=== PATIENT | male | born 1975 | race Hispanic/Latino ===

== ENCOUNTER 2024-02-08 16:27 | Observation (INO) | payer OTHER ==
--- OUTSIDE RECORDS SUMMARY | 2024-02-08 16:30 | XMS REPORT | Continuity of Care Document ---
Author Name Unknown Address [address] [facility] [place] [address] [facility] thconnect Address [address] [place] [address] Care Team Providers Care Aircraft Ordnance Technician Name Role Phone Kurtis Attending Clinician Unavailable JAHAIRA JUARES Attending Clinician Unavailable AMY HINSON Attending Clinician Unava ilable Olinda Attending Clinician Unavailable LEONEL ÁLVAREZ Attending Clinician Unavail able YVES IVAN Attending Clinician Unavailable [id number] Attending Clinician Unavailable Provider, [facility] Attending Clinician Un available Denisse Shukla Attending Clinician DENISSE BARRY Attending Clinician Unavailable Doctor Unassigned, [place] Attending Clinician U marcella Hull Admitting Clinician Unavailable Olinda Admitting Clinician Unavailable Payers Payer Name Policy Type Policy Number Effective Date Expirati on Date Source [employer]ET[employer] CHOICE POS II [id number] 2022 00:00:00 AETNA - CHOICE (POS II) [id number] 2008 00:00:00 [employer]ET[employer] 2 [id number] 2022 00:00:00 Problems Condition Name Condition Details Condition Category Status Onset Date Resolution Date Last Treatment Date Treating Clinician Comments Source No known active problems No known active problems Disease [facility] Allergies, Adverse Reactions, Alerts Allergy Name Allergy Type Status Severity Reaction(s) Onset Date Inactive Date Treating Clinician Comments Source Doxylami ne-Pheny lephrine Propensi ty to adverse reaction s Active Unknown - See comments 2019-12 00:00: 00 Other reaction( s): rapid heart rate [facility] DOXYLAMI NE-PHENY LEPHRINE DRUG Active Unknown-Cmnt 2019-12 00:00: 00 [facility] NO KNOWN ALLERGIE S Drug Class Active [facility] Social History Social Habit Start Date Stop Date Quantity Comments Source Exposure to SARS-CoV-2 (event) Not sure [facility] Alcohol intake 2022-09-17 00:00:00 2022-09-17 00:00:00 Ex-drinker (finding) Gricelda Ferrari - Zehra Tobacco use and exposure 2022-09-17 00:00:00 2022-09-17 00:00:00 Smokeless tobacco non-user Gricelda Ferrari - External Sex Assigned At 1975 00:00:00 1975 00:00:00 Gricelda Ferrari - External Smoking Status Start Date Stop Date Source Former Smoker [facility] Unknown if ever smoked [facility] Never smoked tobacco Gricelda Ferrari - External Medications Ordered Medication Name Filled Medication Name Start Date Stop Date Current Medication? Ordering Clinician Indication Dosage Frequency Signature (SIG) Comments Components Source Methotrexat e 2.5 MG oral Tablet 2021-12 0 00:00: 00 Yes [id number] 10mg Take 4 tablets (10 mg total) by mouth once a week Gricelda santiago Cholecalcif rebeca 1.25 MG (68262 UT) oral Capsule 2021-12 00:00: 00 10-16 05:59 :00 No [id number] Take 1 capsule (50,000 units total) by mouth twice a week for 8 doses Gricelda santiago Losartan Potassium 50 MG oral Tablet 2021-12 09:02: 40 Yes 50mg Take 50 mg by mouth Gricelda santiago Amlodipine Besylate 10 MG oral Tablet 2021-12 09:02: 40 Yes 1{each} 1 each daily Gricelda santiago [place]-3 Fatty Acids (Fish Oil) 1000 MG oral Capsule 2021-12 09:02: 40 Yes 1000mg Take 1,000 mg by mouth 3 times daily Gricelda santiago methylPREDN ISolone (Medrol) 4 MG oral Tablet Therapy Pack 2021-12 00:00: 00 Yes [id number] 1{danial} Take 1 danial by mouth See Admin Instructio ns Use as directed. Gricelda Asifalverto Tasneem Axela jack Metformin HCl 1000 MG oral Tablet 08-20 00:00: 00 Yes 1000mg Take 1,000 mg by mouth 2 times daily Gricelda Vonda santiago Dulaglutide (Trulicity) 1.5 MG/0.5ML subcutaneou s Solution Pen-injecto r 2020-12 00:00: 00 Yes 1mL 1 mL Gricelda Asifyueciro Boateng Axela jack dulaglutide (TRULICITY) 1.5 mg/0.5 mL PnIj 05-22 18:02: 12 Yes inject under the skin. [facility] losartan 50 mg tablet 05-22 18:02: 12 Yes 50mg Take 50 mg by mouth. [facility] metformin ER 750 mg 24 hr tablet 03-19 00:00: 00 Yes TAKE 1 TABLET BY MOUTH EVERY DAY WITH BREAKFAST [facility] atorvastati n 40 mg tablet 03-09 00:00: 00 Yes 20mg Take 20 mg by mouth. [facility] amLODIPine 5 mg tablet 2019-12 00:00: 00 Yes 5mg Take 5 mg by mouth. [facility] Insulin Detemir (LEVEMIR FLEXTOUCH U-100 INSULN) 100 unit/mL (3 mL) injection 2019-12 00:00: 00 Yes 60U inject 60 Units under the skin. [facility] Metformin HCl 1000 MG oral Tablet 2017-12 00:00: 00 Yes metformin 1,000 mg tablet TAKE 1 TABLET BY MOUTH TWICE A DAY Gricelda Vonda santiago diflupredna te 0.05 % eye drops PLACE 1 DROP IN RIGHT EYE EVERY 2 HOURS FOR 3 DAYS THEN USE 1 DROP FOUR TIMES DAILY diflupredna te 0.05 % eye drops PLACE 1 DROP IN RIGHT EYE EVERY 2 HOURS FOR 3 DAYS THEN USE 1 DROP FOUR TIMES DAILY No diflupredn ate 0.05 % eye drops PLACE 1 DROP IN RIGHT EYE EVERY 2 HOURS FOR 3 DAYS THEN USE 1 DROP FOUR TIMES DAILY [facility] escitalopra m 10 mg tablet Take 1 tablet by mouth daily. escitalopra m 10 mg tablet Take 1 tablet by mouth daily. No escitalopr am 10 mg tablet Take 1 tablet by mouth daily. [facility] gabapentin 300 mg capsule TAKE 1 CAPSULE BY MOUTH AT BEDTIME gabapentin 300 mg capsule TAKE 1 CAPSULE BY MOUTH AT BEDTIME No gabapentin 300 mg capsule TAKE 1 CAPSULE BY MOUTH AT BEDTIME [facility] losartan 100 mg tablet TAKE 1 TABLET BY MOUTH EVERY DAY losartan 100 mg tablet TAKE 1 TABLET BY MOUTH EVERY DAY No losartan 100 mg tablet TAKE 1 TABLET BY MOUTH EVERY DAY [facility] metformin 1,000 mg tablet TAKE 1 TABLET BY MOUTH TWICE A DAY metformin 1,000 mg tablet TAKE 1 TABLET BY MOUTH TWICE A DAY No metformin 1,000 mg tablet TAKE 1 TABLET BY MOUTH TWICE A DAY [facility] metoprolol succinate ER 50 mg tablet,exte nded release 24 hr Take 1 tablet every day by oral route. metoprolol succinate ER 50 mg tablet,exte nded release 24 hr Take 1 tablet every day by oral route. No 1 Q1D metoprolol succinate ER 50 mg tablet,ext ended release 24 hr Take 1 tablet every day by oral route. [facility] rosuvastati n 10 mg tablet TAKE 1 TABLET BY MOUTH EVERY DAY (PLEASE SCHEDULE APPOINTMENT ) rosuvastati n 10 mg tablet TAKE 1 TABLET BY MOUTH EVERY DAY (PLEASE SCHEDULE APPOINTMENT ) No rosuvastat in 10 mg tablet TAKE 1 TABLET BY MOUTH EVERY DAY (PLEASE SCHEDULE APPOINTMEN T) [facility] Trulicity 0.75 mg/0.5 mL subcutaneou s pen injector INJECT 1 ML SUBCUTANEOU SLY EVERY WEEK Trulicity 0.75 mg/0.5 mL subcutaneou s pen injector INJECT 1 ML SUBCUTANEOU SLY EVERY WEEK No Trulicity 0.75 mg/0.5 mL subcutaneo us pen injector INJECT 1 ML SUBCUTANEO USLY EVERY WEEK [facility] Trulicity 1.5 mg/0.5 mL subcutaneou s pen injector Inject 1.5 mg every week by subcutaneou s route. Trulicity 1.5 mg/0.5 mL subcutaneou s pen injector Inject 1.5 mg every week by subcutaneou s route. No 1.5mg Q1W Trulicity 1.5 mg/0.5 mL subcutaneo us pen injector Inject 1.5 mg every week by subcutaneo us route. [facility] Vascepa 1 gram capsule TAKE 2 CAPSULES BY MOUTH TWICE A DAY Vascepa 1 gram capsule TAKE 2 CAPSULES BY MOUTH TWICE A DAY No Vascepa 1 gram capsule TAKE 2 CAPSULES BY MOUTH TWICE A DAY [facility] amlodipine 10 mg tablet TAKE 1 TABLET BY MOUTH EVERY DAY amlodipine 10 mg tablet TAKE 1 TABLET BY MOUTH EVERY DAY No amlodipine 10 mg tablet TAKE 1 TABLET BY MOUTH EVERY DAY [facility] buspirone 7.5 mg tablet Take 1 tablet by mouth twice daily. buspirone 7.5 mg tablet Take 1 tablet by mouth twice daily. No buspirone 7.5 mg tablet Take 1 tablet by mouth twice daily. [facility] cholecalcif rebeca (vitamin D3) 1,250 mcg (50,000 unit) capsule TAKE 1 CAPSULE (50,000 UNITS TOTAL) BY MOUTH TWICE A WEEK FOR 8 DOSES cholecalcif rebeca (vitamin D3) 1,250 mcg (50,000 unit) capsule TAKE 1 CAPSULE (50,000 UNITS TOTAL) BY MOUTH TWICE A WEEK FOR 8 DOSES No cholecalci ferol (vitamin D3) 1,250 mcg (50,000 unit) capsule TAKE 1 CAPSULE (50,000 UNITS TOTAL) BY MOUTH TWICE A WEEK FOR 8 DOSES [facility] diflupredna te 0.05 % eye drops PLACE 1 DROP IN RIGHT EYE EVERY 2 HOURS FOR 3 DAYS THEN USE 1 DROP FOUR TIMES DAILY diflupredna te 0.05 % eye drops PLACE 1 DROP IN RIGHT EYE EVERY 2 HOURS FOR 3 DAYS THEN USE 1 DROP FOUR TIMES DAILY No diflupredn ate 0.05 % eye drops PLACE 1 DROP IN RIGHT EYE EVERY 2 HOURS FOR 3 DAYS THEN USE 1 DROP FOUR TIMES DAILY [facility] escitalopra m 10 mg tablet Take 1 tablet by mouth daily. escitalopra m 10 mg tablet Take 1 tablet by mouth daily. No escitalopr am 10 mg tablet Take 1 tablet by mouth daily. [facility] gabapentin 300 mg capsule TAKE 1 CAPSULE BY MOUTH AT BEDTIME gabapentin 300 mg capsule TAKE 1 CAPSULE BY MOUTH AT BEDTIME No gabapentin 300 mg capsule TAKE 1 CAPSULE BY MOUTH AT BEDTIME [facility] losartan 100 mg tablet TAKE 1 TABLET BY MOUTH EVERY DAY losartan 100 mg tablet TAKE 1 TABLET BY MOUTH EVERY DAY No losartan 100 mg tablet TAKE 1 TABLET BY MOUTH EVERY DAY [facility] metformin 1,000 mg tablet TAKE 1 TABLET BY MOUTH TWICE A DAY metformin 1,000 mg tablet TAKE 1 TABLET BY MOUTH TWICE A DAY No metformin 1,000 mg tablet TAKE 1 TABLET BY MOUTH TWICE A DAY [facility] methotrexat e 2.5 mg tablet Take 4 tablets every week by oral route. methotrexat e 2.5 mg tablet Take 4 tablets every week by oral route. No 4 Q1W methotrexa te 2.5 mg tablet Take 4 tablets every week by oral route. [facility] methotrexat e sodium 2.5 mg tablet methotrexat e sodium 2.5 mg tablet No methotrexa te sodium 2.5 mg tablet [facility] metoprolol succinate ER 50 mg tablet,exte nded release 24 hr TAKE 1 TABLET BY MOUTH EVERY DAY metoprolol succinate ER 50 mg tablet,exte nded release 24 hr TAKE 1 TABLET BY MOUTH EVERY DAY No metoprolol succinate ER 50 mg tablet,ext ended release 24 hr TAKE 1 TABLET BY MOUTH EVERY DAY [facility] rosuvastati n 10 mg tablet TAKE 1 TABLET BY MOUTH EVERY DAY (PLEASE SCHEDULE APPOINTMENT ) rosuvastati n 10 mg tablet TAKE 1 TABLET BY MOUTH EVERY DAY (PLEASE SCHEDULE APPOINTMENT ) No rosuvastat in 10 mg tablet TAKE 1 TABLET BY MOUTH EVERY DAY (PLEASE SCHEDULE APPOINTMEN T) [facility] Trulicity 0.75 mg/0.5 mL subcutaneou s pen injector INJECT 1 ML SUBCUTANEOU SLY EVERY WEEK Trulicity 0.75 mg/0.5 mL subcutaneou s pen injector INJECT 1 ML SUBCUTANEOU SLY EVERY WEEK No Trulicity 0.75 mg/0.5 mL subcutaneo us pen injector INJECT 1 ML SUBCUTANEO USLY EVERY WEEK [facility] Trulicity 1.5 mg/0.5 mL subcutaneou s pen injector Inject 1.5 mg every week by subcutaneou s route. Trulicity 1.5 mg/0.5 mL subcutaneou s pen injector Inject 1.5 mg every week by subcutaneou s route. No 1.5mg Q1W Trulicity 1.5 mg/0.5 mL subcutaneo us pen injector Inject 1.5 mg every week by subcutaneo us route. [facility] Trulicity 3 mg/0.5 mL subcutaneou s pen injector Inject 3 mg every week by subcutaneou s route. Trulicity 3 mg/0.5 mL subcutaneou s pen injector Inject 3 mg every week by subcutaneou s route. No 3mg Q1W Trulicity 3 mg/0.5 mL subcutaneo us pen injector Inject 3 mg every week by subcutaneo us route. [facility] Vascepa 1 gram capsule TAKE 2 CAPSULES BY MOUTH TWICE A DAY Vascepa 1 gram capsule TAKE 2 CAPSULES BY MOUTH TWICE A DAY No Vascepa 1 gram capsule TAKE 2 CAPSULES BY MOUTH TWICE A DAY [facility] amlodipine 10 mg tablet TAKE 1 TABLET BY MOUTH EVERY DAY amlodipine 10 mg tablet TAKE 1 TABLET BY MOUTH EVERY DAY No amlodipine 10 mg tablet TAKE 1 TABLET BY MOUTH EVERY DAY [facility] buspirone 7.5 mg tablet Take 1 tablet by mouth twice daily. buspirone 7.5 mg tablet Take 1 tablet by mouth twice daily. No buspirone 7.5 mg tablet Take 1 tablet by mouth twice daily. [facility] cholecalcif rebeca (vitamin D3) 1,250 mcg (50,000 unit) capsule TAKE 1 CAPSULE (50,000 UNITS TOTAL) BY MOUTH TWICE A WEEK FOR 8 DOSES cholecalcif rebeca (vitamin D3) 1,250 mcg (50,000 unit) capsule TAKE 1 CAPSULE (50,000 UNITS TOTAL) BY MOUTH TWICE A WEEK FOR 8 DOSES No cholecalci ferol (vitamin D3) 1,250 mcg (50,000 unit) capsule TAKE 1 CAPSULE (50,000 UNITS TOTAL) BY MOUTH TWICE A WEEK FOR 8 DOSES [facility] diflupredna te 0.05 % eye drops PLACE 1 DROP IN RIGHT EYE EVERY 2 HOURS FOR 3 DAYS THEN USE 1 DROP FOUR TIMES DAILY diflupredna te 0.05 % eye drops PLACE 1 DROP IN RIGHT EYE EVERY 2 HOURS FOR 3 DAYS THEN USE 1 DROP FOUR TIMES DAILY No diflupredn ate 0.05 % eye drops PLACE 1 DROP IN RIGHT EYE EVERY 2 HOURS FOR 3 DAYS THEN USE 1 DROP FOUR TIMES DAILY [facility] escitalopra m 10 mg tablet Take 1 tablet by mouth daily. escitalopra m 10 mg tablet Take 1 tablet by mouth daily. No escitalopr am 10 mg tablet Take 1 tablet by mouth daily. [facility] gabapentin 300 mg capsule TAKE 1 CAPSULE BY MOUTH AT BEDTIME gabapentin 300 mg capsule TAKE 1 CAPSULE BY MOUTH AT BEDTIME No gabapentin 300 mg capsule TAKE 1 CAPSULE BY MOUTH AT BEDTIME [facility] losartan 100 mg tablet TAKE 1 TABLET BY MOUTH EVERY DAY losartan 100 mg tablet TAKE 1 TABLET BY MOUTH EVERY DAY No losartan 100 mg tablet TAKE 1 TABLET BY MOUTH EVERY DAY [facility] losartan 100 mg-hydrochl orothiazide 12.5 mg tablet Take 1 tablet every day by oral route. losartan 100 mg-hydrochl orothiazide 12.5 mg tablet Take 1 tablet every day by oral route. No 1 Q1D losartan 100 mg-hydroch lorothiazi de 12.5 mg tablet Take 1 tablet every day by oral route. [facility] metformin 1,000 mg tablet TAKE 1 TABLET BY MOUTH TWICE A DAY metformin 1,000 mg tablet TAKE 1 TABLET BY MOUTH TWICE A DAY No metformin 1,000 mg tablet TAKE 1 TABLET BY MOUTH TWICE A DAY [facility] methotrexat e 2.5 mg tablet Take 4 tablets every week by oral route. methotrexat e 2.5 mg tablet Take 4 tablets every week by oral route. No 4 Q1W methotrexa te 2.5 mg tablet Take 4 tablets every week by oral route. [facility] methotrexat e sodium 2.5 mg tablet TAKE 4 TABLETS (10 MG TOTAL) BY MOUTH ONCE A WEEK methotrexat e sodium 2.5 mg tablet TAKE 4 TABLETS (10 MG TOTAL) BY MOUTH ONCE A WEEK No methotrexa te sodium 2.5 mg tablet TAKE 4 TABLETS (10 MG TOTAL) BY MOUTH ONCE A WEEK [facility] metoprolol succinate ER 50 mg tablet,exte nded release 24 hr TAKE 1 TABLET BY MOUTH EVERY DAY metoprolol succinate ER 50 mg tablet,exte nded release 24 hr TAKE 1 TABLET BY MOUTH EVERY DAY No metoprolol succinate ER 50 mg tablet,ext ended release 24 hr TAKE 1 TABLET BY MOUTH EVERY DAY [facility] Ozempic 2 mg/dose (8 mg/3 mL) subcutaneou s pen injector Inject 2 mg every week by subcutaneou s route. Ozempic 2 mg/dose (8 mg/3 mL) subcutaneou s pen injector Inject 2 mg every week by subcutaneou s route. No 2mg Q1W Ozempic 2 mg/dose (8 mg/3 mL) subcutaneo us pen injector Inject 2 mg every week by subcutaneo us route. [facility] Prescriptio n - Prior Authorizati on Request Prescriptio n - Prior Authorizati on Request No Prescripti on - Prior Authorizat ion Request [facility] rosuvastati n 10 mg tablet TAKE 1 TABLET BY MOUTH EVERY DAY (PLEASE SCHEDULE APPOINTMENT ) rosuvastati n 10 mg tablet TAKE 1 TABLET BY MOUTH EVERY DAY (PLEASE SCHEDULE APPOINTMENT ) No rosuvastat in 10 mg tablet TAKE 1 TABLET BY MOUTH EVERY DAY (PLEASE SCHEDULE APPOINTMEN T) [facility] Trulicity 0.75 mg/0.5 mL subcutaneou s pen injector INJECT 1 ML SUBCUTANEOU SLY EVERY WEEK Trulicity 0.75 mg/0.5 mL subcutaneou s pen injector INJECT 1 ML SUBCUTANEOU SLY EVERY WEEK No Trulicity 0.75 mg/0.5 mL subcutaneo us pen injector INJECT 1 ML SUBCUTANEO USLY EVERY WEEK [facility] Trulicity 1.5 mg/0.5 mL subcutaneou s pen injector INJECT 1.5MG SUBCUTANEOU SLY ONE TIME PER WEEK Trulicity 1.5 mg/0.5 mL subcutaneou s pen injector INJECT 1.5MG SUBCUTANEOU SLY ONE TIME PER WEEK No Trulicity 1.5 mg/0.5 mL subcutaneo us pen injector INJECT 1.5MG SUBCUTANEO USLY ONE TIME PER WEEK [facility] Trulicity 3 mg/0.5 mL subcutaneou s pen injector Inject 3 mg every week by subcutaneou s route. Trulicity 3 mg/0.5 mL subcutaneou s pen injector Inject 3 mg every week by subcutaneou s route. No Trulicity 3 mg/0.5 mL subcutaneo us pen injector Inject 3 mg every week by subcutaneo us route. [facility] Vascepa 1 gram capsule TAKE 2 CAPSULES BY MOUTH TWICE A DAY Vascepa 1 gram capsule TAKE 2 CAPSULES BY MOUTH TWICE A DAY No Vascepa 1 gram capsule TAKE 2 CAPSULES BY MOUTH TWICE A DAY [facility] amlodipine 10 mg tablet Take 1 tablet every day by oral route. amlodipine 10 mg tablet Take 1 tablet every day by oral route. No 1 Q1D amlodipine 10 mg tablet Take 1 tablet every day by oral route. [facility] losartan 100 mg tablet Take 1 tablet every day by oral route for 90 days. losartan 100 mg tablet Take 1 tablet every day by oral route for 90 days. No 1 Q1D losartan 100 mg tablet Take 1 tablet every day by oral route for 90 days. [facility] metformin 1,000 mg tablet Take 1 tablet twice a day by oral route. metformin 1,000 mg tablet Take 1 tablet twice a day by oral route. No 1 BID metformin 1,000 mg tablet Take 1 tablet twice a day by oral route. [facility] Trulicity 0.75 mg/0.5 mL subcutaneou s pen injector Inject 1 mL every week by subcutaneou s route. Trulicity 0.75 mg/0.5 mL subcutaneou s pen injector Inject 1 mL every week by subcutaneou s route. No 1mL Q1W Trulicity 0.75 mg/0.5 mL subcutaneo us pen injector Inject 1 mL every week by subcutaneo us route. [facility] amlodipine 10 mg tablet Take 1 tablet every day by oral route. amlodipine 10 mg tablet Take 1 tablet every day by oral route. No 1 Q1D amlodipine 10 mg tablet Take 1 tablet every day by oral route. [facility] losartan 100 mg tablet Take 1 tablet every day by oral route for 90 days. losartan 100 mg tablet Take 1 tablet every day by oral route for 90 days. No 1 Q1D losartan 100 mg tablet Take 1 tablet every day by oral route for 90 days. [facility] metformin 1,000 mg tablet Take 1 tablet twice a day by oral route. metformin 1,000 mg tablet Take 1 tablet twice a day by oral route. No 1 BID metformin 1,000 mg tablet Take 1 tablet twice a day by oral route. [facility] Trulicity 0.75 mg/0.5 mL subcutaneou s pen injector Inject 1 mL every week by subcutaneou s route. Trulicity 0.75 mg/0.5 mL subcutaneou s pen injector Inject 1 mL every week by subcutaneou s route. No 1mL Q1W Trulicity 0.75 mg/0.5 mL subcutaneo us pen injector Inject 1 mL every week by subcutaneo us route. [facility] amlodipine 10 mg tablet TAKE 1 TABLET BY MOUTH EVERY DAY amlodipine 10 mg tablet TAKE 1 TABLET BY MOUTH EVERY DAY No amlodipine 10 mg tablet TAKE 1 TABLET BY MOUTH EVERY DAY [facility] Vital Signs Vital Name Observation Time Observation Value Comments S ource BP Diastolic 2023-03-24 00:00:00 120 mm[Hg] [facility] Height 2023-03-24 00:00:00 67 [in_i] [facility] BMI (Body Mass Index) 2023-03-24 00:00:00 37.3 kg/m2 [facility] ly Practice BP Systolic 2023-03-24 00:00:00 182 mm[Hg] [facility] Body Weight 2023-03-24 00:00:00 238 [lb_av] [facility] BP Diastolic 2022-12-03 00:00:00 86 mm[Hg] [facility] Height 2022-12-03 00:00:00 67 [in_i] [facility] BMI (Body Mass Index) 2022-12-03 00:00:00 37.3 kg/m2 [facility] ly [facility] BP Systolic 2022-12-03 00:00:00 118 mm[Hg] [facility] Body Weight 2022-12-03 00:00:00 238.4 [lb_av] [facility] BP Diastolic 2022-09-24 00:00:00 97 mm[Hg] [facility] Height 2022-09-24 00:00:00 67 [in_i] [facility] BMI (Body Mass Index) 2022-09-24 00:00:00 36.8 kg/m2 [facility] BP Systolic 2022-09-24 00:00:00 139 mm[Hg] [facility] Body Weight 2022-09-24 00:00:00 235 [lb_av] [facility] BP Diastolic 2022-08-19 00:00:00 100 mm[Hg] [place] [facility] Height 2022-08-19 00:00:00 67 [in_i] Onofre ge [facility] BMI (Body Mass Index) 2022-08-19 00:00:00 37.9 kg/m2 [facility] BP Systolic 2022-08-19 00:00:00 148 mm[Hg] [facility] Body Weight 2022-08-19 00:00:00 242.2 [lb_av] [facility] Systolic blood pressure 2021-05-22 18:03:00 150 mm[Hg] [facility] Diastolic blood pressure 2021-05-22 18:03:00 100 mm[Hg] [facility] Heart rate 2021-05-22 17:59:00 83 /min [facility] Body temperature 2021-05-22 17:59:00 36.61 Evelyn [facility] Respiratory rate 2021-05-22 17:59:00 17 /min [facility] Body height 2021-05-22 17:59:00 175.3 cm [facility] Body weight 2021-05-22 17:59:00 97.523 kg [facility] BMI 2021-05-22 17:59:00 31.75 kg/m2 [facility] Oxygen saturation in Arterial blood by Pulse oximetry 2021-05-22 17:59:00 98 /min [facility] Procedures Procedure Date / Time Performed Performing Clinician Source electrocardiogram 2022-08-19 00:00:00 [facility] X-RAY OF CHEST 2 VIEW 2022-08-19 00:00:00 [facility] ASSIGNMENT OF BENEFITS 2021-05-22 17:15:01 Docto r Unassigned, [place] [facility] Plan of Care Planned Activity Planned Date Details Comments Source Diagnostic Test Pending 2022-12-03 00:00:00 CBC w/ auto diff [code = CBC w/ auto diff] [facility] Diagnostic Test Pending 2022-12-03 00:00:00 CMP, serum or plasma [code = CMP, serum or plasma] [facility] Diagnostic Test Pending 2022-12-03 00:00:00 HbA1c (hemoglobin A1c), blood [code = HbA1c (hemoglobin A1c), blood] [facility] Diagnostic Test Pending 2022-12-03 00:00:00 lipid panel, serum [code = lipid panel, serum] [facility] Diagnostic Test Pending 2022-12-03 00:00:00 urinalysis, complete [code = urinalysis, complete] [facility] Instructions [facility] Encounters Start Date/Time End Date/Time Encounter Type Admission Type Attending Clinicians Care Facility Care Department Encounter ID Source 2022-09-03 11:00:32 Outpatient [facility] [id number] [facility] 2022-08-28 12:05:36 Outpatient [facility] [id number] [facility] 2024-02-05 00:00:00 2024-02-05 00:00:00 Outpatient Rosanna ALMONTE VFP VFP [id number] [facility] e 2023-12-29 09:00:00 2023-12-29 09:00:00 Outpatient JAHAIRA JUARES [id number] [facility] 2023-12-15 16:20:00 2023-12-15 16:20:00 Outpatient AMY HINSON [id number] [facility] 2023-03-24 00:00:00 2023-03-24 00:00:00 Outpatient Sheena_R VFP [id number] [id number] [facility] [facility] 2023-03-24 00:00:00 2023-03-24 00:00:00 Outpatient Sheena_R VFP VFP [id number] [facility] 2023-03-24 00:00:00 2023-03-24 00:00:00 Leonel Beal MD: [id number] [facility] [address], [place] [address] , Ph. VFP [place] - [facility] - [place] - VM_BILLY_Smith navarrete In Medicine [id number] [facility] 2023-03-08 00:00:00 2023-03-08 00:00:00 Outpatient Sheena_R VFP VFP [id number] [facility] 2023-02-17 00:00:00 2023-02-17 00:00:00 Outpatient LEONEL ÁLVAREZ [id number] Gricelda Sealverto 2023-02-01 00:00:00 2023-02-01 00:00:00 Outpatient Sheena_R VFP VFP [id number] [facility] 2023-02-01 00:00:00 2023-02-01 00:00:00 Outpatient Sheena_R VFP VFP [id number] [facility] 2022-12-28 00:00:00 2022-12-28 00:00:00 Outpatient Sheena_R VFP VFP [id number] [facility] 2022-12-16 00:00:00 2022-12-16 00:00:00 Outpatient LEONEL ÁLVAREZ [id number] [facility] 2022-12-03 00:00:00 2022-12-03 00:00:00 Outpatient Sheena_R VFP VFP [id number] [facility] 2022-12-03 00:00:00 2022-12-03 00:00:00 Leonel Beal MD: [id number] [facility] [address], [place] [address] , Ph. VFP [place] [facility] - [place] - _Román[facility] [id number] [facility] 2022-11-08 00:00:00 2022-11-08 00:00:00 Outpatient Sheena_R VFP VFP [id number] [facility] 2022-10-04 13:00:00 2022-10-04 13:00:00 Outpatient YVES IVAN [facility] [id number] [facility] 2022-09-27 00:00:00 2022-09-27 00:00:00 Outpatient LEONEL ÁLVAREZ [id number] Gricelda Ferrari 2022-09-26 14:30:00 2022-09-26 14:30:00 Outpatient LEONEL ÁLVAREZ [id number] Gricelda Ferrari 2022-09-24 15:00:00 2022-09-24 15:00:00 Outpatient LEONEL ÁLVAREZ [id number] [facility] 2022-09-24 00:00:00 2022-09-24 00:00:00 Outpatient Sheena_R VFP VFP [id number] [facility] e 2022-09-24 00:00:00 2022-09-24 00:00:00 Leonel Beal MD: [id number] [facility] [address], [place] [address] , Ph. VFP [place] [facility] [place] _BILLY_Jordandenisse navarrete In Medicine [id number] [facility] e 2022-09-23 00:00:00 2022-09-23 00:00:00 Outpatient Sheena_R VFP VFP [id number] [facility] e 2022-09-21 00:00:00 2022-09-21 00:00:00 Outpatient Sheena_R VFP VFP [id number] [facility] e 2022-09-20 00:00:00 2022-09-20 00:00:00 Outpatient LEONEL ÁLVAREZ [id number] [facility] 2022-09-17 10:00:00 2022-09-17 10:00:00 Outpatient [facility] GRICELDA COONEY [id number] [facility] 2022-09-17 09:30:00 2022-09-17 09:30:00 Outpatient GRICELDA COONEY [id number] [facility] 2022-09-17 09:15:00 2022-09-17 09:15:00 Outpatient LEONEL ÁLVAREZ [id number] Gricelda alverto 2022-08-31 00:00:00 2022-08-31 00:00:00 Outpatient Sheena_R VFP VFP [id number] [facility] e 2022-08-22 00:00:00 2022-08-22 00:00:00 Outpatient Sheena_R VFP VFP [id number] [facility] 2022-08-19 00:00:00 2022-08-19 00:00:00 Outpatient Sheena_R VFP VFP [id number] [facility] 2022-08-19 00:00:00 2022-08-19 00:00:00 Leonel Beal MD: [id number] [facility] [address], [place] [address] , Ph. VFP [place] - [facility] - VM_HOU_[facility] In [facility] [id number] [facility] 2022-07-16 00:00:00 2022-07-16 00:00:00 Outpatient Sheena_R VFP VFP [id number] [facility] 2021-05-22 12:20:18 2021-05-22 13:56:25 Urgent Care Provider, [facility] Denisse Barry [facility] 1..[id number] [facility] 2021-05-22 12:20:00 2021-05-22 12:20:00 Outpatient Chintan DENISSE [facility]Y [facility] [id number] [facility] 2021-05-22 00:00:00 2021-05-22 00:00:00 Orders Only Doctor Unassigned, [place] [facility] 1..[id number] [facility] 2021-05-05 00:00:00 2021-05-05 00:00:00 Outpatient Sheena_R VFP VFP [id number] [facility]
[2024-02-08 17:27] LABS: Protime INR 1.08
[2024-02-08 17:28] LABS: Absolute Basophils 0.1 K/uL (0-0.5); Absolute Eosinophils 0.2 K/uL (0-0.5); Basophils % 1.1 % (0-1.3); Eosinophils % 1.4 % (0-4.4); Hematocrit 44.8 % (39.6-49.0); Lymphocytes % 25.6 % (15.3-44.8); MCV 90.4 fL (80-100); MPV 8.3 fL (7.6-11.3); Platelets 303 thou/uL (152-406); RBC Red Blood Cell Count 4.95 M/uL (4.33-5.43)
[2024-02-08 17:43] LABS: Albumin 3.6 g/dL (3.4-5.0); Anion Gap 10.5 mEq/L (5.0-15.0); Bilirubin Direct 0.2 mg/dL (0-0.2); Bilirubin Indirect, Calculated 0.3 mg/dL (0.2-0.8); Bilirubin Total 0.5 mg/dL (0.2-1.0); Globulin 3.5 g/dL (2.3-3.5); Protein, Total 7.1 g/dL (6.4-8.2); Troponin High Sensitivity 7.3 pg/mL (<58.9)
[2024-02-08 17:44] LABS: Magnesium 1.7 mg/dL (1.6-2.4); Potassium 3.5 mEq/L (3.5-5.1)
[2024-02-08] MEDS ORDERED: LABETALOL 20 MG/4ML SYRINGE IV ONE (17:57)
[2024-02-08] MEDS ORDERED: LABETALOL HCL 100 MG TAB ONE (17:57)
[2024-02-08] MEDS ORDERED: AMLODIPINE 10 MG TAB ONE (17:57)
[2024-02-08] MEDS ORDERED: MAGNESIUM SULFATE 1 gm IVPB 1 GM/100 ML BAG IV ONE (17:58)
--- NOTE | 2024-02-08 18:16 | EDPHYS ---
Physician Documentation [facility] Name: Jacques Reno Age: 48 yrs Sex: Male : 1975 Arrival Date: 02/08/2024 Time: 16:27 Bed 15 Private MD: ED Physician Oh Rubio HPI: 02/07 17:33 This 48 yrs old Male presents to ER via Ambulatory with complaints of High vickie Blood Pressure, Chest Pain, Back Pain, Shortness Of Breath. 17:33 The patient has elevated blood pressure and discovered this at home. Onset: The vickie symptoms/episode began/occurred today. Modifying factors: The symptoms are aggravated by activity. Associated signs and symptoms: Pertinent positives: chest pain, lightheadedness, nausea. Severity of symptoms: At its worst the blood pressure was moderate, in the emergency department the blood pressure is unchanged. The patient has experienced similar episodes in the past, several times. Historical: - Allergies: 16:38 No Known Allergies; as6 - PMHx: 16:38 Diabetes mellitus; Hypertensive disorder; Arthritis; as6 - PSHx: 16:38 None; as6 - Immunization history:: Adult Immunizations up to date. - Social history:: Smoking status: Reported history of juuling and/or vaping. ROS: 17:37 Constitutional: Negative for fever, chills, and weight loss, Eyes: Negative for injury, vickie pain, redness, and discharge, ENT: Negative for injury, pain, and discharge, Neck: Negative for injury, pain, and swelling, Back: Negative for injury and pain, : Negative for injury, bleeding, discharge, and swelling, MS/Extremity: Negative for injury and deformity, Skin: Negative for injury, rash, and discoloration, Neuro: Negative for headache, weakness, numbness, tingling, and seizure, Psych: Negative for depression, anxiety, suicide ideation, homicidal ideation, and hallucinations, Allergy/Immunology: Negative for hives, rash, and allergies, Endocrine: Negative for neck swelling, polydipsia, polyuria, polyphagia, and marked weight changes, Hematologic/Lymphatic: Negative for swollen nodes, abnormal bleeding, and unusual bruising, 17:37 Cardiovascular: Positive for chest pain, 17:37 Respiratory: Positive for shortness of breath, 17:37 Abdomen/GI: Positive for abdominal pain, nausea, of the epigastric area and left upper quadrant, 17:37 MS/extremity: Negative for acute changes, Exam: 17:37 Constitutional: This is a well developed, well nourished patient who is awake, alert, vickie and in no acute distress. Head/Face: Normocephalic, atraumatic. Eyes: Pupils equal round and reactive to light, extra-ocular motions intact. Lids and lashes normal. Conjunctiva and sclera are non-icteric and not injected. Cornea within normal limits. Periorbital areas with no swelling, redness, or edema. ENT: Nares patent. No nasal discharge, no septal abnormalities noted. Tympanic membranes are normal and external auditory canals are clear. Oropharynx with no redness, swelling, or masses, exudates, or evidence of obstruction, uvula midline. Mucous membranes moist. Neck: Trachea midline, no thyromegaly or masses palpated, and no cervical lymphadenopathy. Supple, full range of motion without nuchal rigidity, or vertebral point tenderness. No Meningismus. Chest/axilla: Normal chest wall appearance and motion. Nontender with no deformity. No lesions are appreciated. Cardiovascular: Regular rate and rhythm with a normal S1 and S2. No gallops, murmurs, or rubs. Normal PMI, no JVD. No pulse deficits. Respiratory: Lungs have equal breath sounds bilaterally, clear to auscultation and percussion. No rales, rhonchi or wheezes noted. No increased work of breathing, no retractions or nasal flaring. Abdomen/GI: Soft, non-tender, with normal bowel sounds. No distension or tympany. No guarding or rebound. No evidence of tenderness throughout. Back: No spinal tenderness. No costovertebral tenderness. Full range of motion. Male : Normal genitalia with no discharge or lesions. Skin: Warm, dry with normal turgor. Normal color with no rashes, no lesions, and no evidence of cellulitis. MS/ Extremity: Pulses equal, no cyanosis. Neurovascular intact. Full, normal range of motion. Neuro: Awake and alert, GCS 15, oriented to person, place, time, and situation. Cranial nerves II-XII grossly intact. Motor strength 5/5 in all extremities. Sensory grossly intact. Cerebellar exam normal. Normal gait. Psych: Awake, alert, with orientation to person, place and time. Behavior, mood, and affect are within normal limits. 17:37 ECG was reviewed by the Attending Physician. Vital Signs: 16:35 BP 187 / 109; Pulse 91; Resp 15 S; Temp 97.8(O); Pulse Ox 99% on R/A; Weight 106.14 kg as6 (R); Height 5 ft. 8 in. (R); Pain 0/10; 17:05 BP 172 / 102; Pulse 87; Resp 18; Pulse Ox 96% on R/A; ph 19:21 BP 148 / 92; Pulse 78; Resp 18; Pulse Ox 98% on R/A; ph 16:35 Body Mass Index 35.58 (106.14 kg, 172.72 cm) as6 16:35 Pain Scale: Adult as6 MDM: 16:39 Patient medically screened. vickie 17:42 Differential diagnosis: abnormal EKG, acute myocardial infarction, acute pericarditis, vickie coronary artery disease chest wall pain, congestive heart failure cholecystitis, Cholelithiasis costochondritis, hypertensive crisis, Malignant HTN, esophagitis, gastritis, gastroesophageal reflux disease (GERD), pancreatitis, peptic ulcer disease, pericarditis, pleurisy, pneumothorax, pulmonary embolus, stable angina, thoracic aortic disection, unstable angina. HEART Score: History: Moderately Suspicious (1), ECG: Normal (0), Age: > 45 and < 65 years (1), Risk Factors: > or = 3 Risk factors for atherosclerotic disease (2), [Hypercholesterolemia] [Hypertension] [DM] [Active Smoker] [+ Family HX] [Obesity] Troponin: < or = 1 x Normal Limit (0). The patient was given aspirin in the Emergency Department. ROHINI Risk Score: 1 - Three or more CAD risk factors, 1- Known CAD, 1 - ASA use in past 7 days, 1 - Recent [<24hrs] Severe Angina, TOTAL SCORE = 4. Data reviewed: vital signs, nurses notes, lab test result(s), EKG, radiologic studies, CT scan, plain films. Consideration of Admission/Observation Patient was admitted/placed on observation. Escalation of care including admission/observation considered. I considered the following discharge prescriptions or medication management in the emergency department Medications were administered in the Emergency Department. See MAR. Independent interpretation of the following test(s) in the Emergency Department EKG: See my EKG interpretation above. Test considered but Not performed: Ultrasound no 2 d echo. Historians other than the Patient: Spouse/Significant Other: son , . Care significantly affected by the following chronic conditions: Diabetes, Hypertension, Obesity. Counseling: I had a detailed discussion with the patient and/or guardian regarding the historical points, exam findings, and any diagnostic results supporting the discharge/admit diagnosis, the presence of at least one elevated blood pressure reading (>120/80) during this emergency department visit, lab results, radiology results, the need for further work-up and treatment in the hospital. 02/07 16:35 Order name: Basic Metabolic Panel; Complete Time: 17:46 as02/07 16:35 Order name: CBC with Diff; Complete Time: 17:46 02/07 16:35 Order name: LFT's; Complete Time: 17:46 02/07 16:35 Order name: Magnesium; Complete Time: 17:46 02/07 16:35 Order name: NT PRO-BNP; Complete Time: 17:46 [facility] 02/07 16:35 Order name: PT-INR; Complete Time: 17:32 as 02/07 16:35 Order name: Troponin HS; Complete Time: 17:46 02/07 16:41 Order name: Lipase [facility] 02/07 16:41 Order name: Urinalysis w/ reflexes [facility] 02/07 21:20 Order name: Basic Metabolic Panel [facility] 02/07 21:20 Order name: Basic Metabolic Panel [facility] 02/07 21:20 Order name: Basic Metabolic Panel [facility] 02/07 21:20 Order name: CBC with Automated Diff [facility] 02/07 21:20 Order name: CBC with Automated Diff [facility] 02/07 21:20 Order name: CBC with Automated Diff [facility] 02/07 22:35 Order name: Glucose, Ancillary Testing [facility] 02/08 04:01 Order name: Hemoglobin A1c [facility] 02/07 16:35 Order name: XRAY Chest (1 view) [facility] 02/07 16:41 Order name: CT Aorta for Dissection [facility] 02/07 17:31 Order name: US Abdomen Limited [facility] 02/08 09:08 Order name: MRI [facility] 02/07 16:35 Order name: EKG; Complete Time: 16:35 [facility] 02/07 21:20 Order name: CONS Physician Consult [facility] 02/07 16:35 Order name: Cardiac monitoring; Complete Time: 16:42 02/07 16:35 Order name: EKG - Nurse/Tech; Complete Time: 16:37 02/07 16:35 Order name: IV Saline Lock; Complete Time: 17:33 02/07 16:35 Order name: Labs collected and sent; Complete Time: 17:33 02/07 16:35 Order name: O2 Per Protocol; Complete Time: 16:42 02/07 16:35 Order name: O2 Sat Monitoring; Complete Time: 16:42 EC:37 Rate is 90 beats/min. Rhythm is regular. QRS Carson is Normal. SC interval is normal. QRS vickie interval is normal. QT interval is normal. No Q waves. T waves are Normal. No ST changes noted. Clinical impression: NSR w/ Non-specific ST/T Changes and No evidence of ischemia. Interpreted by me. Reviewed by me. Administered Medications: 18:15 Drug: Famotidine IVP 20 mg IVP once; dilute with 10 mL 0.9% NaCl; give over 2 minutes ph Route: IVP; Site: right forearm; 19:22 Follow up: Response: No adverse reaction ph 18:15 Drug: Labetalol PO 100 mg PO once Route: PO; ph 19:21 Follow up: Response: No adverse reaction ph 18:20 Drug: Labetalol IV 20 mg IV at per protocol once over 2 mins Route: IV; Rate: per ph protocol; Infused Over: 2 mins; Site: right forearm; 19:22 Follow up: Response: No adverse reaction; IV Status: Completed infusion ph 18:25 Drug: Magnesium Sulfate IVPB 1 grams IVPB once over 1 hrs Route: IVPB; Infused Over: 1 ph hrs; Site: right forearm; 18:38 Drug: Norvasc PO 10 mg PO once Route: PO; ph 19:21 Follow up: Response: No adverse reaction ph 19:20 Drug: Piperacillin-Tazobactam IVPB 3.375 grams IVPB once over 60 mins; (mix in NS 100 ph mL) Route: IVPB; Infused Over: 60 mins; Site: right forearm; 19:20 Drug: Enoxaparin Sub-Q 100 mg Sub-Q once Route: Sub-Q; Site: right lower abdomen; ph 19:21 Follow up: Response: No adverse reaction ph 19:20 Drug: Aspirin PO Chewable Tablet 162 mg PO once Route: PO; ph 19:21 Follow up: Response: No adverse reaction ph 21:44 Not Given (Patient Refused): morphineor iv 4 mg IVP once over 4 mins tm6 21:44 Not Given (Patient Refused): ondansetron 4 mg IVP once; over 2 minutes tm6 Disposition Summary: 02/08/24 18:15 Hospitalization Ordered Notes: Hospitalization Status: Inpatient Admission vickie Provider: Prosper Vasquez cha Condition: Fair vickie Problem: new vickie Symptoms: have improved vickie Bed/Room Type: Standard vickie Location: Telemetry/MedSurg (Inpatient)(02/09/24 07:42) bd Room Assignment: [facility](02/09/24 07:42) Diagnosis - Chest pain, unspecified vickie - Epigastric abdominal tenderness vickie - Essential (primary) hypertension vickie - Other cholelithiasis without obstruction vickie - Tobacco abuse counseling vickie - Tobacco use vickie - Obesity, unspecified vickie Forms: - Medication Reconciliation Form vickie - SBAR form vickie - Leadership Thank You Letter vickie Signatures: Dispatcher [employer] EDMS Lynne Alvarez Corey, MD MD cha Hall, Patricia RN RN Jose Alberto Molina RN RN as6 Danica Jameson [facility] Constantino Field RN tm6 Corrections: (The following items were deleted from the chart) 19:26 18:15 Telemetry/MedSurg (Inpatient) vickie rv1 19:26 18:15 vickie rv1 02/08 07:42 02/07 19:26 [facility] ER HOLD rv1 bd 02/08 07:42 02/07 19:26 ERHOLD- rv1 bd
--- NOTE | 2024-02-08 18:16 | ER ---
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 pt became diaphoretic, short of breath and lightheaded during this episode. at time of triage pt pain is improved but stills c/o SOB and lightheaded. Coronavirus screen: At this time, the client does not indicate any symptoms associated with coronavirus-19. Ebola Screen: No symptoms or risks identified at this time. Initial Sepsis Screen: Does the patient meet any 2 criteria? No. Patient's initial sepsis screen is negative. Does the patient have a suspected source of infection? No. Patient's initial sepsis screen is negative. Risk Assessment: Do you want to hurt yourself or someone else? Patient reports no desire to harm self or others. Onset of symptoms was February 08, 2024. 16:35 Method Of Arrival: Ambulatory as6 16:35 Acuity: JUANITA 2 as6 Triage Assessment: 16:38 General: Appears uncomfortable, Behavior is calm, cooperative. Pain: Denies pain. as6 Cardiovascular: Reports lightheadedness, shortness of breath. Historical: - Allergies: 16:38 No Known Allergies; as6 - PMHx: 16:38 Diabetes mellitus; Hypertensive disorder; Arthritis; as6 - PSHx: 16:38 None; as6 - Immunization history:: Adult Immunizations up to date. - Social history:: Smoking status: Reported history of juuling and/or vaping. Screenin:04 [facility] ED Fall Risk Assessment (Adult) History of falling in the last 3 months, ph including since admission No falls in past 3 months (0 pts) Confusion or Disorientation No (0 pts) Intoxicated or Sedated No (0 pts) Impaired Gait No (0 pts) Mobility Assist Device Used No (0 pt) Altered Elimination No (0 pt) Score/Fall Risk Level 0 - 2 = Low Risk Oriented to surroundings, Maintained a safe environment, Provided non-skid footwear, Hourly rounding (assess needs \T\ fall precautionary measures) done. Abuse screen: Denies threats or abuse. Denies injuries from another. Nutritional screening: No deficits noted. Tuberculosis screening: No symptoms or risk factors identified. Assessment: 17:03 General: Appears in no apparent distress. uncomfortable, obese, Behavior is calm, ph cooperative, appropriate for age. Pain: Complains of pain in anterior aspect of left upper chest Pain does not radiate. Quality of pain is described as pressure. Neuro: Level of Consciousness is awake, alert, obeys commands, Oriented to person, place, time, situation. Cardiovascular: Capillary refill < 3 seconds in bilateral fingers Patient's skin is warm and dry. Respiratory: Reports shortness of breath at rest Airway is patent Respiratory effort is even, unlabored. GI: No signs and/or symptoms were reported involving the gastrointestinal system. Musculoskeletal: Circulation, motion, and sensation intact. Range of motion: intact in all extremities. 19:22 Reassessment: Patient appears in no apparent distress at this time. Patient and/or ph family updated on plan of care and expected duration. Pain level reassessed. Patient is alert, oriented x 3, equal unlabored respirations, skin warm/dry/pink. Vital Signs: 16:35 BP 187 / 109; Pulse 91; Resp 15 S; Temp 97.8(O); Pulse Ox 99% on R/A; Weight 106.14 kg as6 (R); Height 5 ft. 8 in. (R); Pain 0/10; 17:05 BP 172 / 102; Pulse 87; Resp 18; Pulse Ox 96% on R/A; ph 19:21 BP 148 / 92; Pulse 78; Resp 18; Pulse Ox 98% on R/A; ph 16:35 Body Mass Index 35.58 (106.14 kg, 172.72 cm) as6 16:35 Pain Scale: Adult as6 Vitals: 17:05 Cardiac Rhythm Assessment Sinus rhythm. ED Course: 16:30 Patient arrived in ED. rg4 16:35 EKG done, by ED staff, reviewed by Oh Rubio MD. hb 16:37 Essie Manzanares, RN is Primary Nurse. ph 16:38 Triage completed. as6 16:39 Oh Rubio MD is Attending Physician. vickie 16:40 Arm band placed on Patient placed in an exam room, on a stretcher, on patient monitor, as6 on pulse oximetry. 16:41 Client placed on continuous cardiac and pulse oximetry monitoring. NIBP monitoring hb applied. vehicle monitor technician on. Pulse ox on. NIBP on. 16:46 XRAY Chest (1 view) In Process Unspecified. EDMS 17:04 Initial lab(s) drawn, by me, sent to lab. Patient maintains SpO2 saturation greater ph than 95% on room air. 17:08 Missed attempt(s): 22 gauge in right antecubital area. Bleeding controlled, band aid ph applied, catheter tip intact. Inserted saline lock: 22 gauge in right forearm, using aseptic technique. 17:[address] via wheelchair. hb 18:02 CT Aorta for Dissection In Process Unspecified. EDMS 18:09 Patient has correct armband on for positive identification. Bed in low position. Call ph light in reach. Side rails up X2. 18:13 Prosper Vasquez MD is Hospitalizing Provider. vickie 18:19 US Abdomen Limited In Process Unspecified. EDMS 19:21 No provider procedures requiring assistance completed. Patient admitted, IV remains in ph place. 20:24 Urinalysis w/ reflexes Sent. oe 21:12 Primary Nurse role handed off by Essie Manzanares, RN as6 21:44 Constantino Field, RN is Primary Nurse. tm6 Administered Medications: 18:15 Drug: Famotidine IVP 20 mg IVP once; dilute with 10 mL 0.9% NaCl; give over 2 minutes ph Route: IVP; Site: right forearm; 19:22 Follow up: Response: No adverse reaction ph 18:15 Drug: Labetalol PO 100 mg PO once Route: PO; ph 19:21 Follow up: Response: No adverse reaction ph 18:20 Drug: Labetalol IV 20 mg IV at per protocol once over 2 mins Route: IV; Rate: per ph protocol; Infused Over: 2 mins; Site: right forearm; 19:22 Follow up: Response: No adverse reaction; IV Status: Completed infusion ph 18:25 Drug: Magnesium Sulfate IVPB 1 grams IVPB once over 1 hrs Route: IVPB; Infused Over: 1 ph hrs; Site: right forearm; 18:38 Drug: Norvasc PO 10 mg PO once Route: PO; ph 19:21 Follow up: Response: No adverse reaction ph 19:20 Drug: Piperacillin-Tazobactam IVPB 3.375 grams IVPB once over 60 mins; (mix in NS 100 ph mL) Route: IVPB; Infused Over: 60 mins; Site: right forearm; 19:20 Drug: Enoxaparin Sub-Q 100 mg Sub-Q once Route: Sub-Q; Site: right lower abdomen; ph 19:21 Follow up: Response: No adverse reaction ph 19:20 Drug: Aspirin PO Chewable Tablet 162 mg PO once Route: PO; ph 19:21 Follow up: Response: No adverse reaction ph 21:44 Not Given (Patient Refused): morphineor iv 4 mg IVP once over 4 mins tm6 21:44 Not Given (Patient Refused): ondansetron 4 mg IVP once; over 2 minutes tm6 Medication: 17:04 VIS not applicable for this client. ph Outcome: 18:15 Decision to Hospitalize by Provider. [facility] 02/08 09:30 Patient left the ED. ph Signatures: Dispatcher [employer] EDMS Oh Rubio MD MD cha Hall, Patricia, RN RN ph Debbie Villarreal, GALE RN Thu Elaine rg4 Yasmany Rice Ashby, RN RN as6 Constantino Field RN RN tm6 Corrections: (The following items were deleted from the chart) 02/07 17:08 17:04 Inserted saline lock: 22 gauge in right antecubital area, using aseptic ph technique. Blood collected. ph 17:08 17:04 Initial lab(s) drawn, by ga, sent to lab. ph ph
--- NOTE | 2024-02-08 18:16 | RAD REPORT ---
EXAM DESCRIPTION: CT - Angio Aorta For Dissection - 02/08/2024 6:00 pm CLINICAL HISTORY: . Chest and abd pain COMPARISON: None TECHNIQUE: Computed tomography angiography of the chest, abdomen pelvis were obtained. 100 cc Isovue 370 was administered intravenously. Coronal and sagittal reconstruction were performed. MIP 3D reconstruction was performed All CT scans are performed using dose optimization technique as appropriate and may include automated exposure control or mA/KV adjustment according to patient size. FINDINGS: An aortic dissection is not seen. An aortic aneurysm is not displayed. The celiac, SMA and DAHIANA are patent . A lung consolidation is not present. A pericardial effusion is not seen. A pleural effusion is not no elin. The spleen, pancreas,adrenals and kidneys demonstrate no significant abnormality. Multiple gallstones. Gallbladder wall does not appear thickened. Fatty liver. There no evidence diverticulitis. Normal appendix. Small umbilical hernia. Mild prostatic enlargement Mild gastric distention IMPRESSION: Negative for an aortic dissection. Cholelithiasis without evidence of cholecystitis
--- NOTE | 2024-02-08 18:17 | RAD REPORT ---
EXAM DESCRIPTION: Rachel Single View02/08/2024 4:45 pm CLINICAL HISTORY: Chest pain COMPARISON: none FINDINGS: The lungs appear clear of acute infiltrate. The heart is normal size IMPRESSION: No acute abnormalities displayed
[2024-02-08] MEDS ORDERED: ENOXAPARIN 100 MG/ML SYR SQ ONE (18:46)
[2024-02-08] MEDS ORDERED: NA CHLORIDE 0.9% 100 ML ONE (18:47)
[2024-02-08] MEDS ORDERED: ASPIRIN 81 MG CHEWABLE TABLET ONE (18:47)
[2024-02-08] MEDS ORDERED: PIPERACIL/TAZO 3.375 GM VIAL IV ONE (18:47)
--- NOTE | 2024-02-08 18:48 | RAD REPORT ---
EXAM DESCRIPTION: US - Abdomen Exam Limited - 02/08/2024 6:17 pm CLINICAL HISTORY: Abdominal pain. COMPARISON: February 08, 2024 CT FINDINGS: The gallbladder wall is not thickened. Multiple gallstones The biliary tree is normal caliber. IMPRESSION: Cholelithiasis without evidence of cholecystitis
[2024-02-08 20:46] LABS: Urine Bacteria <20 /HPF (<20); Urine Bilirubin NEGATIVE (Negative); Urine Blood Negative (Negative); Urine Clarity Clear (Clear); Urine Color Light-Yellow (Yellow); Urine Glucose NEGATIVE (Negative); Urine Protein 1+ (Negative); Urine RBC <5 /HPF (None Seen); Urine Urobilinogen 1+ (Normal); Urine pH 7.5 (5.0-7.0)
[2024-02-08 20:48] LABS: Specific Gravity > 1.030 (1.005-1.030)
--- NOTE | 2024-02-08 21:12 | P.HP ---
Certification for Inpatient Patient admitted to: Observation With expected LOS: <2 Midnights Practitioner: I am a practitioner with admitting privileges, knowledge of patient current condition, hospital course, and medical plan of care. Services: Services provided to patient in accordance with Admission requirements found in Title 42 Section 412.3 of the Code of Federal Regulations Patient History Date of Service: 02/09/24 Reason for admission: Abdominal pain, cholelithiasis. History of Present Illness: 48-year-old male patient with medical history significant for diabetes type 2 admitted for management of cholelithiasis. He has a history of cholelithiasis and he has issues with recurrent abdominal pain but this got so bad over the last couple of days so he decided to come to the ED. Imaging study done showed cholelithiasis without significant cholecystitis however he had some transaminitis. He was admitted for surgeon evaluation for possible cholecystectomy. No issues with fever, chills, nausea, vomiting, shortness of breath. Allergies No Known Allergies Allergy (Unverified 02/08/24 22:09) Review of Systems General: Unremarkable Eyes: Unremarkable ENT: Unremarkable Respiratory: Unremarkable Cardiovascular: Unremarkable Gastrointestinal: Abdominal Pain Genitourinary: Unremarkable Musculoskeletal: Unremarkable Integumentary: Unremarkable Neurological: Unremarkable Lymphatics: Unremarkable Physical Examination - Physical Exam General: Alert, Oriented x3 HEENT: Atraumatic Cardiovascular: Regular rate/rhythm, Normal S1 S2 Gastrointestinal: Soft and benign Musculoskeletal: No swelling Neurological: Normal speech, Normal strength at 5/5 x4 extr - Studies Laboratory Data (last 24 hrs) 02/08/24 02/08/24 02/08/24 17:05 17:05 17:05 WBC 11.70 H Hgb 16.0 Hct 44.8 Plt Count 303 PT 11.9 INR 1.08 Sodium Potassium BUN Creatinine Glucose Magnesium Total Bilirubin AST ALT Alkaline Phosphatase Lipase 52 02/08/24 17:05 WBC Hgb Hct Plt Count PT INR Sodium 139 Potassium 3.5 BUN 18 Creatinine 1.12 Glucose 192 H Magnesium 1.7 Total Bilirubin 0.5 AST 119 H ALT 85 H Alkaline Phosphatase 92 Lipase Assessment and Plan - Plan Cholelithiasis: No significant evidence of cholecystitis however patient has significant symptoms. He will be kept n.p.o. from midnight. Surgeon to evaluate for cholecystectomy. Will do MRCP to rule out dislodged gallstone since patient has transaminitis. Elevated blood glucose Will obtain hemoglobin A1c and keep patient on every 6 blood glucose checks since he is n.p.o. for now. Prophylaxis: Lovenox for DVT prophylaxis CODE STATUS: Full code Disposition: Will have patient's cholelithiasis addressed and he will be discharged once cleared by surgical service. - Advance Directives Does patient have a Living Will: No Does patient have a Durable POA for Healthcare: No
[2024-02-08] MEDS ORDERED: ONDANSETRON 4 MG/2 ML VIAL IV PRN (21:13)
[2024-02-08] MEDS: NA CHLORIDE 0.9% 1,000 ML IV SCH (22:00)
[2024-02-08 22:28] VITALS: BMI 35.4
[2024-02-09 03:36] LABS: Absolute Basophils 0.1 K/uL (0-0.5); Absolute Eosinophils 0.2 K/uL (0-0.5); Absolute Lymphocytes (CBC) 3.6 K/uL (0.7-4.9); Basophils % 1.2 % (0-1.3); Eosinophils % 2.8 % (0-4.4); Hematocrit 41.6 % (39.6-49.0); Hemoglobin 14.8 g/dL (13.6-17.9); Lymphocytes % 43.8 % (15.3-44.8); MCV 91.7 fL (80-100); Platelets 266 thou/uL (152-406); RBC Red Blood Cell Count 4.54 M/uL (4.33-5.43)
[2024-02-09 04:42] LABS: Anion Gap 9.6 mEq/L (5.0-15.0)
[2024-02-09 04:46] LABS: Potassium 3.6 mEq/L (3.5-5.1)
[2024-02-09] MEDS: ENOXAPARIN 40 MG/0.4 ML SQ SCH (09:00)
--- NOTE | 2024-02-09 09:08 | RAD REPORT ---
EXAM DESCRIPTION: MRI - Cholangiogram - 02/09/2024 8:57 am CLINICAL HISTORY: eval of dislodged gallstones Abdominal pain COMPARISON: Angio Aorta For Dissection dated 02/08/2024; Abdomen Exam Limited dated 02/08/2024 FINDINGS: Three-dimensional MRCP was performed using maximum intensity projection reconstruction on the same work station. No intrahepatic biliary tree dilatation is seen. The common bile duct is normal caliber without evide nce of retained stone, stricture or mass. The pancreatic duct is not pathologically dilated. Extensive cholelithiasis. Small 11 diverticulum of gallbladder suspected. Limited T2 sequences through the abdomen demonstrates no bulky adenopathy, significant free fluid or abscess. IMPRESSION: Extensive cholelithiasis.
[2024-02-09] MEDS: ACETAMINOPHEN 325 MG TABLET PO PRN (10:50)
--- NOTE | 2024-02-09 13:55 | P.PN ---
Subjective Date of Service: 02/09/24 Chief Complaint: Abdominal pain, cholelithiasis. Patient reports mild right upper quadrant abdominal pain. He denies any vomiting. He is n.p.o. in anticipation for surgery evaluation. Physical Examination - Vital Signs Temperature: 97.3 F Blood Pressure: 128/75 Pulse: 75 Respirations: 18 Pulse Ox (%): 98 - Studies Laboratory Data (last 24 hrs) 02/08/24 02/08/24 02/08/24 17:05 17:05 17:05 WBC 11.70 H Hgb 16.0 Hct 44.8 Plt Count 303 PT 11.9 INR 1.08 Sodium Potassium BUN Creatinine Glucose Magnesium Total Bilirubin AST ALT Alkaline Phosphatase Lipase 52 02/08/24 17:05 WBC Hgb Hct Plt Count PT INR Sodium 139 Potassium 3.5 BUN 18 Creatinine 1.12 Glucose 192 H Magnesium 1.7 Total Bilirubin 0.5 AST 119 H ALT 85 H Alkaline Phosphatase 92 Lipase Assessment And Plan - Plan Cholelithiasis: No significant evidence of cholecystitis however patient has significant symptoms. MRCP shows extensive cholelithiasis. Patient is currently n.p.o. Awaiting surgery evaluation. Monitor LFT. Analgesics as needed. Diabetes mellitus type 2 with hyperglycemia Hemoglobin A1c is mildly elevated. Insulin sliding scale for glucose management. DVT prophylaxis: Lovenox CODE STATUS: Full code
[2024-02-09] MEDS: LOSARTAN POTASSIUM 50 MG TABLET PO SCH (18:52)
[2024-02-09] MEDS: LOSARTAN/HCTZ 50-12.5 PO SCH (18:52)
[2024-02-09] MEDS: AMLODIPINE 10 MG TAB PO SCH (18:52)
--- NOTE | 2024-02-09 20:28 | CON ---
Date of Consultation: 02/09/2024 Diagnosis: Symptomatic cholelithiasis. History Of Present Illness: This is the case of a 48-year-old patient who comes to us complaining of epigastric right upper quadrant pain, associated with nausea. The patient diagnosed with acute chol ecystitis, symptomatic cholelithiasis, admitted to the hospital. During the workup found to have als o some distended common bile duct and MRCP was done today, found to have only symptomatic cholelithia sis and a surgical consult was obtained for possible cholecystectomy. He says every now and then he has this pain, but he never associated the pain with gallbladder disease. He denies any dysuria, hem aturia, hematochezia, melena. He denies any recent traveling out of the country. Denies any family member sick at home. Allergies: NONE. Medical Problems: Include diabetes, hypertension, arthritis. Surgical History: None. Social History: He does not smoke. He does not drink alcohol. Family History: Noncontributory. Review of Systems: Nausea, vomiting, abdominal pain. 10 points otherwise unremarkable. He was advised the importance o f colonoscopy. Physical Examination: General: The patient is awake, alert. HEENT: Pupils are equal and reactive. Anicteric. Neck: Supple. Chest: Clear. Heart: S1, S2. Abdomen: Soft and depressible. There is epigastric right upper quadrant tenderness with Chris sign positive. Rectal: Deferred. Extremities: Good capillary refill. Laboratory Data: Blood work shows a WBC count of 11.7 with hemoglobin of 16 and platelets of 303. I NR is 1.08. Chloride is 109, glucose is 132. Ultrasound of the abdomen interpreted by Dr. Guo a s cholelithiasis. Multi stone. CAT scan of the abdomen interpreted by Dr. Guo as negative for a ortic dissection, cholelithiasis without evidence of inflammation. Multiple gallstones present. Fat ty liver. The patient was also advised evidence of umbilical hernia, mild prostatic enlargement. MR CP done this morning, interpreted by Dr. Ji as extensive cholelithiasis. No intrahepatic biliary t ree dilatation seen. Blood work, LFT shows total bilirubin of 0.5 and AST 119, ALT 85, and alkaline phosphate of 92. Assessment: A 48-year-old patient with symptomatic cholelithiasis, acute cholecystitis, Chris sign positive. The benefits, alternatives, and risks of laparoscopic possible open cholecystectomy fully explained, which include, but not limited to infection, bleeding, damage to adjacent structures, anes thesia complication, choledocholithiasis, bile leak, pancreatitis, OR, even . He also understan ds this may not relieve symptoms, he might need more than one surgical intervention. He wants to hav e his surgery done at this admission. So we booked him for tomorrow morning at 7:30 in the morning. ARMANDO/VARINDER Voice ID: [id number] Report ID: [id number]
[2024-02-10] MEDS: METOPROLOL XL 100 MG TAB PO SCH (05:04)
[2024-02-10] MEDS ORDERED: FENTANYL CITR 100 MCG/2 ML ONE ×2 (07:01→08:25)
[2024-02-10] MEDS ORDERED: MIDAZOLAM HCL 2 MG/2 ML INJ ONE (07:01)
[2024-02-10] MEDS ORDERED: ROCURONIUM 50 MG/5 ML VIAL IV ONE (07:01)
[2024-02-10] MEDS ORDERED: LIDOCAINE 1% MPF 5 ML VIAL ONE (07:01)
[2024-02-10] MEDS ORDERED: KETOROLAC 30 MG/ML INJ ONE (07:01)
[2024-02-10] MEDS ORDERED: ONDANSETRON 4 MG/2 ML VIAL ONE (07:01)
[2024-02-10] MEDS ORDERED: propofoL 200 MG/20 ML VIAL IV ONE (07:01)
[2024-02-10 07:03] LABS: Absolute Basophils 0.1 K/uL (0-0.5); Absolute Eosinophils 0.2 K/uL (0-0.5); Absolute Lymphocytes (CBC) 2.5 K/uL (0.7-4.9); Basophils % 0.9 % (0-1.3); Eosinophils % 3.2 % (0-4.4); Hematocrit 45.5 % (39.6-49.0); Hemoglobin 15.8 g/dL (13.6-17.9); Lymphocytes % 32.4 % (15.3-44.8); MCV 91.6 fL (80-100); MPV 7.9 fL (7.6-11.3); Platelets 275 thou/uL (152-406); RBC Red Blood Cell Count 4.97 M/uL (4.33-5.43)
[2024-02-10 07:25] LABS: Albumin 3.4 g/dL (3.4-5.0); Albumin/Globulin Ratio 0.9 (1.1-1.8); Anion Gap 9.5 mEq/L (5.0-15.0); Bilirubin Direct 0.1 mg/dL (0-0.2); Bilirubin Indirect, Calculated 0.6 mg/dL (0.2-0.8); Bilirubin Total 0.7 mg/dL (0.2-1.0); Globulin 3.8 g/dL (2.3-3.5); Potassium 3.5 mEq/L (3.5-5.1); Protein, Total 7.2 g/dL (6.4-8.2)
--- NOTE | 2024-02-10 07:48 | P.PN ---
Date of Service: 02/10/24 Subjective: ROS: 10 point ROS as noted above, otherwise negative Physical Exam: GEN: Alert, oriented, NAD HEENT: Normal conjunctiva, sclera anicteric CV: Regular rate and rhythm, no edema Pulm: Nonlabored respirations on room air, clear bilaterally ABD: Soft, nontender, dressing in place Neuro: Normal speech, normal affect vitals reviewed Problem List: Symptomatic cholelithiasis / acute cholecystitis, s/p laparoscopic ch olecystectomy (02/09) DM2 with Hyperglycemia Hypertension Symptomatic cholelithiasis / acute cholecystitis, s/p laparoscopic cholecystectomy (02/09) abdominal u/s (02/07): cholelithiasis without evidence of cholecystisis MRCP (02/08): extensive cholelithiasis. Small 11 diverticulum of gallbladder General surgery - Dr. Li consulted s/p laparoscopic cholecystectomy (02/09) PRN analgesics / antiemetics continue IV fluids Monitor LFTs DM2 with Hyperglycemia sliding scale insulin A1c 7.2 Hypertension continue home meds including losartan, Hctz/losartan, amlodipine VTE: SCD for now Code: Full Dispo: home, later today vs tomorrow Pending recovery / tolerating diet without issues
[2024-02-10] MEDS: CEFOXITIN SODIUM 1 GM/VIAL ONE (08:02)
[2024-02-10] MEDS ORDERED: dexAMETHasone 10 MG/ML VIAL ONE (08:02)
[2024-02-10] MEDS: NA CHLORIDE 0.9% 1,000 ML ONE (08:15)
[2024-02-10] MEDS ORDERED: EPHEDRINE SULF 50 MG/ML VIAL ONE (08:17)
[2024-02-10] MEDS ORDERED: GLYCOPYRROLATE 0.2 MG/ML SYR ONE (09:00)
[2024-02-10] MEDS ORDERED: NEOSTIGMINE 1 MG/ML -10 ML VIAL ONE (09:00)
[2024-02-10 09:26] VITALS: TEMP 97
--- NOTE | 2024-02-10 09:38 | P.BOP ---
Preoperative diagnosis: symptomatic cholelithiasis, acute cholecystitis Postoperative diagnosis: same Primary procedure: Laparoscopic cholecystectomy Estimated blood loss: <10cc Specimen: gb Findings: as above Anesthesia: General Complications: None Transferred to: Recovery Room Condition: Good
[2024-02-10 09:56] VITALS: BP 125/67; O2SAT 95
--- NOTE | 2024-02-10 11:12 | OP ---
Date of Procedure: 02/10/2024 Surgeon: Merritt Li MD Preoperative Diagnoses: Acute cholecystitis, symptomatic cholelithiasis, intractable right upper elizabeth drant abdominal pain. Postoperative Diagnoses: Acute cholecystitis, symptomatic cholelithiasis, intractable right upper qu adrant abdominal pain. Procedure: Laparoscopic cholecystectomy. Anesthesia: General plus local. Complications: None. Estimated Blood Loss: Less than 10 cc. Indications: This is the case of a male, who came to us admitted to the hospital with symptomatic ch olelithiasis and acute cholecystitis. He preferred to have surgery done during this admission. So, we explained to him laparoscopic possible open cholecystectomy as one of the options with benefits, a lternatives, and risks including, but not limited to, infection, bleeding, damage to adjacent structu res, anesthesia complication, choledocholithiasis, bile leak, pancreatitis, KS, and even . He a lso understands this may not relieve any symptoms, he might need more than one surgical intervention. He understood and signed a consent. Description Of Procedure: The patient was brought to the operating room, placed in supine position. Anesthesia was done without complication. Abdomen was prepped and draped in a sterile fashion. Mar slime 0.5% injected with local anesthetic followed by sharp incision of the skin in the infraumbilica l region. Incision was carried down to fascia, which was opened under direct vision. Peritoneum was encountered, opened under direct vision. Vicryl #1 placed inside the fascia. Mary trocar was car efully introduced. Pneumoperitoneum was obtained. I placed 3 more trocars, 5 mm each one of them on the epigastric and right upper quadrant area under direct visualization. This allowed me to take a look at the gallbladder, put a grasper in the fundus of the gallbladder, another grasper in the infun dibulum, retracting the gallbladder in the inferolateral fashion exposing the triangle of Calot, obta ining critical view. Cystic duct and cystic artery were clearly isolated, freed circumferentially an d a connection between those and the gallbladder were clearly identified. I proceeded to ligate thos e by using at least 3 clips proximal, 1 clip distal, ligation in the middle. Same was done with the cystic artery. No bile leak. No bleeding. The gallbladder was removed from the liver using Bovie c auterizer and removed from abdominal cavity using EndoCatch through the umbilical incision. The area was inspected once again. No bile leak. No bleeding. Gallbladder fossa with no bleeding. At that moment, I proceeded to remove the trocars under direct vision, deflated pneumoperitoneum, closing th e fascia with #1 Vicryl, irrigated subcutaneous tissue, closed that with 3-0 chromic and then the ski n in a subcuticular fashion with 3-0 chromic. Sponge counts and instrument counts were correct. The patient tolerated the procedure well. Patient sent to Recovery in stable condition. ARMANDO/VARINDER Voice ID: [id number] Report ID: [id number]
[2024-02-10] MEDS: MORPHINE 2 MG/ML SYR IV PRN (11:57)
[2024-02-10] MEDS: CEFOXITIN 1 GM in NA CHLORIDE 0.9% 50 ML IVPB SCH (12:00)
--- NOTE | 2024-02-10 14:52 | P.DS ---
Admission Date: 02/08/24 Discharge Date: 02/10/24 Disposition: ROUTINE DISCHARGE Discharge Condition: GOOD Reason for Admission: Abdominal pain, cholelithiasis. Consultations: General Surgery - Dr. Li Brief History of Present Illness: 48yo M, PMH: diabetes type 2 admitted for management of cholelithiasis He has a history of cholelithiasis and he has issues with recurrent abdominal pain but this got so bad over the last couple of days so he decided to come to the ED. Imaging study done showed cholelithiasis without significant cholecystitis however he had some transaminitis. He was admitted for surgeon evaluation for possible cholecystectomy. No issues with fever, chills, nausea, vomiting, shortness of breath. Hospital Course: Problem List: Symptomatic cholelithiasis / acute cholecystitis, s/p laparoscopic cholecystectomy (02/09) DM2 with Hyperglycemia Hypertension Patient presented with worsening abdominal pain and was found to have extensive symptomatic cholelithasis seen on imaging (CT and MRCP). General surgery, Dr. Li was consulted, and performed laparoscopic cholecystectomy on 02/09. Post-operatively he was doing well. Reported pain was tolerable and requesting non-opioid analgesics. He tolerated a diet and was voiding without issue on day of discharge. He was deemed stable for discharge home, with close follow up in ~[address] Li Medications: Augmentin x 7 days Celecoxib 200mg twice daily as needed for pain Follow up: PCP 3-[address] Li in 1-2 weeks No heavy lifting, >10lbs for 6 weeks Surgical Instructions per Dr. Li: Keep surgical area dry for 48h then may remove outer dressing and shower. Keep sterile strips intact. Blood pressure medications given once in ER: Oral: Labetalol 100mg and amlodipine 10mg IV: 20mg Labetalol Physical Exam: GEN: Alert, oriented, NAD HEENT: Normal conjunctiva, sclera anicteric CV: Regular rate and rhythm, no edema Pulm: Nonlabored respirations on room air, clear bilaterally ABD: Soft, nontender, dressing in place Neuro: Normal speech, normal affect Vital Signs/Physical Exam: Temp Pulse Resp BP Pulse Ox 97 F 75 15 125/67 97 02/10/24 09:32 02/10/24 09:32 02/10/24 12:27 02/10/24 09:32 02/10/24 12:27 Laboratory Data at Discharge: WBC 7.60 thou/uL (4.3-10.9) 02/10/24 06:34 Hgb 15.8 g/dL (13.6-17.9) 02/10/24 06:34 Hct 45.5 % (39.6-49.0) 02/10/24 06:34 Plt Count 275 thou/uL (152-406) 02/10/24 06:34 PT 11.9 SECONDS (9.5-12.5) 02/08/24 17:05 INR 1.08 02/08/24 17:05 Sodium 137 mEq/L (136-145) 02/10/24 06:34 Potassium 3.5 mEq/L (3.5-5.1) 02/10/24 06:34 BUN 8 mg/dL (7-18) 02/10/24 06:34 Creatinine 1.04 mg/dL (0.70-1.30) 02/10/24 06:34 Glucose 170 mg/dL (74-106) H 02/10/24 06:34 Magnesium 1.7 mg/dL (1.6-2.4) 02/08/24 17:05 Total Bilirubin 0.7 mg/dL (0.2-1.0) 02/10/24 06:34 AST 42 U/L (15-37) H 02/10/24 06:34 ALT 105 U/L (16-61) H 02/10/24 06:34 Alkaline Phosphatase 59 U/L (45-117) 02/10/24 06:34 Lipase 52 U/L (13-75) 02/08/24 17:05 Home Medications: Amlodipine [Norvasc*] 10 mg PO DAILY 02/09/24 Losartan Potassium [Cozaar] 100 mg PO DAILY 02/09/24 Losartan/Hydrochlorothiazide [Losartan-Hctz 100-12.5 mg Tab] 1 each PO DAILY 02/09/24 Metoprolol Succinate [Toprol Xl*] 100 mg PO DAILY 02/09/24 Semaglutide [Ozempic] 2 mg SQ 02/09/24 Amox/Clavulanate [Augmentin 875-125 Tab] 1 tab PO BID 7 Days #14 tab 02/10/24 Celecoxib [Celebrex] 200 mg PO BID PRN 5 Days #10 tab 02/10/24 New Medications: Amox/Clavulanate [Augmentin 875-125 Tab] 1 tab PO BID 7 Days #14 tab Celecoxib [Celebrex] 200 mg PO BID PRN 5 Days #10 tab PRN Reason: Pain Scale 5-7 (Moderate) Physician Discharge Instructions: Physician Discharge Summary / Instructions Patient presented with worsening abdominal pain and was found to have extensive symptomatic cholelithasis seen on imaging (CT and MRCP). General surgery, Dr. Li was consulted, and performed laparoscopic cholecystectomy on 02/09. Post-operatively he was doing well. Reported pain was tolerable and requesting non-opioid analgesics. He tolerated a diet and was voiding without issue on day of discharge. He was deemed stable for discharge home, with close follow up in ~[address] Li Medications: Augmentin x 7 days Celecoxib 200mg twice daily as needed for pain Follow up: PCP 3-[address] Li in 1-2 weeks No heavy lifting, >10lbs for 6 weeks Surgical Instructions per Dr. Li: Keep surgical area dry for 48h then may remove outer dressing and shower. Keep sterile strips intact. Blood pressure medications given once in ER: Oral: Labetalol 100mg and amlodipine 10mg IV: 20mg Labetalol Diet: AHA Activity: No lifting more than 10 lbs Followup: Merritt Li MD [ACTIVE - CAN ADMIT] - 1 Week NONE,NONE [Primary Care Provider] - 1 Week Time spent managing pt's care (in minutes): 45
[2024-02-10] MEDS ORDERED: CEFOXITIN 1 GM in NA CHLORIDE 0.9% 50 ML IVPB SCH (17:00)
== END 2024-02-10 15:25 | disposition home or self-care (01) ==
LOC: ER 16:27 → ERHOLD 21:13 → 4TH 02-09 08:28
PROVIDERS: ADMIT Internal Medicine; ATTEND Hospitalist
PROC: 0FT44ZZ Resection of Gallbladder, Percutaneous Endoscopic Approach (ICD-10-PCS; principal; 2024-02-10 07:30)
DX: K80.10 Calculus of gallbladder with chronic cholecystitis without obstruction (principal); E11.9 Type 2 diabetes mellitus without complications; I10 Essential (primary) hypertension; E66.9 Obesity, unspecified; Z68.35 Body mass index [BMI] 35.0-35.9, adult; F17.290 Nicotine dependence, other tobacco product, uncomplicated; Z71.6 Tobacco abuse counseling
CPT/HCPCS: 85025 ×3; 81001; 80048 ×3; 36415 ×2; 83735; 85610; 82947 ×6; 80076 ×2; 88304; 83036; 84484; 83690; 83880; 71275; 74175; 71045; 74181; 76705; 94010; 47562; Q9967; J3475; J1650; J2704; J2710; J2001; J2543; J2250; J3010 ×2; J1100; J2270; J0694; J2405; J7030 ×4; 96365; 96372; 96375; 99285; G0378